=== PATIENT | female | born 1940 | race Caucasian/White ===

== ENCOUNTER 2020-01-03 21:06 | Inpatient (IN) | payer MEDICARE ==
[2020-01-03] MEDS ORDERED: SUBLIMAZE 100 MCG/2 ML IV ONE (21:11)
[2020-01-03] MEDS ORDERED: Sodium Chloride 0.9% 1000 ML 1,000 ML IV SCH (21:15)
[2020-01-03] MEDS ORDERED: Sodium Chloride 0.9% 1000 ML 1,000 ML ONE (21:23)
[2020-01-03] MEDS ORDERED: SUBLIMAZE 100 MCG/2 ML ONE (21:23)
[2020-01-03 21:38] LABS: Absolute Neutrophil Ct (ANC) 4.18 (1.4-6.9); BASOPHIL % 0.3 % (0.0-0.4); Basophil (Absolute #) 0.02 (0-0.4); Eosinophil % 4.4 % (0.00-5.0); Eosinophil (Absolute #) 0.29 (0-0.5); Hematocrit 31.3 % (35-47); Hemoglobin 9.6 gm/dl (12.0-16.0); Lymphocyte (Absolute #) 1.31 (1.0-4.6); Lymphocytes % 20.1 % (24.0-44.0); Mean Corpuscular Hgb Concent. 30.7 g/dl (32-36); Mean Platelet Volume 9.5 fl (7.5-11.0); Monocyte (Absolute #) 0.72 (0.0-1.3); Neutrophil % 64.2 % (36.0-66.0); Platelet Count 180 K/mm3 (150-450); Red Cell Distribution Width 16.4 % (11.5-14.0); White Blood Count 6.5 K/mm3 (4.0-10.5)
[2020-01-03 21:51] LABS: INR 2.52 (0.8-3.0); PROTIME 28.7 SECONDS (9.95-12.35)
[2020-01-03 21:56] LABS: ANION GAP 9.7 MEQ/L (5-15); BILIRUBIN,TOTAL 0.5 mg/dL (0.2-1.3); Calcium 9.7 mg/dL (8.4-10.2); Creatinine 1 1.29 mg/dL (0.52-1.04); EST GLOMERULAR FILTRATION RATE 42.5 ML/MIN; Potassium 4.8 mmol/L (3.5-5.1); Total Protein 7.7 g/dL (6.3-8.2)
--- NOTE | 2020-01-03 22:19 | XRAY ---
Indication: Status post fall 3 days ago. Multiple contiguous axial images obtained through the chest without contrast. Comparison: None Lungs demonstrate scattered peripheral fibrosis/scarring greatest in the right lower lobe. No suspicious pulmonary mass, infiltrate, consolidation, or effusion. Heart is borderline enlarged with incidental aortic valve replacement and a left-sided AICD. Aorta is markedly arteriosclerotic without aneurysmal dilatation. No pathologic mediastinal lymphadenopathy. Osseous structures intact with osteopenia and moderate degenerative changes throughout the spine. CT abdomen/pelvis reported separately. Impression: 1. Scattered fibrosis/scarring, borderline cardiomegaly, postsurgical changes osteopenia, and multilevel degenerative spondylosis. 2. Remaining CT chest without contrast exam is negative.
--- NOTE | 2020-01-03 22:25 | XRAY ---
Indication: Status post fall 3 days ago. Multiple contiguous axial images obtained through the abdomen and pelvis without contrast as ordered. Comparison: October 25, 2006 CT chest reported separately. Noncontrasted stomach and bowel loops appear nonobstructed. Appendix not seen. Cholecystectomy and hysterectomy. No free fluid/air. Again hepatic/splenic calcified granulomas. 2.8 cm right lower renal exophytic cyst. Remaining liver, pancreas, spleen, adrenal glands, kidneys, ureters, and bladder appear unremarkable for noncontrast exam. Heavy scattered aortoiliac calcifications without AAA. Osseous structures demonstrate osteopenia, moderate/advanced multilevel degenerative spondylosis and 7 mm L4 spondylolisthesis. Impression: 1. Right renal cyst, old granulomatous disease, and chronic bony findings. 2. Remaining CT abdomen/pelvis without contrast exam is negative.
[2020-01-03 23:20] LABS: Appearance SLIGHTLY CLOUDY (CLEAR); Bacteria MODERATE /HPF (NEGATIVE); Bilirubin NEGATIVE (NEGATIVE); Blood SMALL Ery/ul (0-5); Glucose NEGATIVE (NEGATIVE); Ketones NEGATIVE (NEGATIVE); Leukocyte Esterase TRACE (NEGATIVE); Nitrite POSITIVE (NEGATIVE); Protein,Urine Dip NEGATIVE (Negative); Specific Gravity 1.015 (1.005-1.025); Urobilinogen NEGATIVE mg/dL (0-1)
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
[2020-01-04] MEDS: DILAUDID 2 MG INJECTION IV PRN ×4 (01:31→13:21)
--- NOTE | 2020-01-04 06:20 | XRAY ---
Indication: Pain following fall 3 days ago. Comparison: CT abdomen/pelvis same day. Single AP pelvis again demonstrates a few phleboliths, lower lumbar degenerative spondylosis, and scattered vascular calcifications. No other bony, articular, or soft tissue abnormalities.
[2020-01-04 06:43] LABS: Absolute Neutrophil Ct (ANC) 2.99 (1.4-6.9); BASOPHIL % 0.6 % (0.0-0.4); Basophil (Absolute #) 0.03 (0-0.4); Eosinophil % 4.1 % (0.00-5.0); Eosinophil (Absolute #) 0.21 (0-0.5); Hematocrit 26.4 % (35-47); Hemoglobin 8.1 gm/dl (12.0-16.0); Lymphocyte (Absolute #) 1.23 (1.0-4.6); Lymphocytes % 24.1 % (24.0-44.0); Mean Cell Volume 102.7 fl (78-100); Mean Corpuscular Hemoglobin 31.5 pg (26-32); Mean Corpuscular Hgb Concent. 30.7 g/dl (32-36); Mean Platelet Volume 9.8 fl (7.5-11.0); Monocyte (Absolute #) 0.65 (0.0-1.3); Monocytes % 12.7 % (0.0-12.0); Neutrophil % 58.5 % (36.0-66.0); Platelet Count 148 K/mm3 (150-450); Red Blood Count 2.57 M/mm3 (4.1-5.4); Red Cell Distribution Width 16.3 % (11.5-14.0); White Blood Count 5.1 K/mm3 (4.0-10.5)
[2020-01-04] MEDS: Sodium Chloride 0.9% 1000 ML 1,000 ML IV SCH ×3 (07:28→21:11)
[2020-01-04] MEDS ORDERED: Sodium Chloride 0.9% 1000 ML 1,000 ML ONE (07:35)
[2020-01-04] MEDS: ROCEPHIN 1 Gm-D5w 50 ml Bag** 1 G/50 ML IVPB IV SCH (12:27)
[2020-01-04] MEDS ORDERED: NON-FORMULARY ITEM (Rivaroxaban [Xarelto] 15 MG) PO SCH (13:15)
[2020-01-04] MEDS: LASIX 20 MG PO SCH (13:21)
[2020-01-04] MEDS: Coreg 6.25 MG PO SCH ×2 (13:21→21:53)
[2020-01-04] MEDS: SYNTHROID 25 MCG PO SCH (13:21)
[2020-01-04] MEDS: SYNTHROID 112 MCG PO SCH (13:22)
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
[2020-01-04] MEDS: Voltaren GEL TOP SCH ×2 (15:03→21:55)
[2020-01-04] MEDS: Norco 10/325 MG Tablet PO PRN ×2 (15:14→21:54)
[2020-01-04] MEDS: XARELTO 10 MG TABLET PO SCH (17:23)
--- NOTE | 2020-01-04 20:36 | XRAY ---
Indication: Chronic right back pain for months. Comparison: CT lumbar spine April 12, 2019. 3 view lumbar spine again demonstrates osteopenia, moderate/advanced multilevel thoracolumbar degenerative spondylosis greatest L4-S1, grade 2 L4 spondylolisthesis, splenic calcified granulomas, cholecystectomy clips, and heavy scattered vascular calcifications. No new or acute findings. Comment: Preliminary interpretation was made by [facility]. No critical discrepancy.
[2020-01-04] MEDS: Restoril 15 MG PO SCH (21:54)
[2020-01-04] MEDS: ZOCOR 20MG PO SCH (21:55)
[2020-01-04] MEDS ORDERED: TEMAZEPAM 30 MG PO SCH (22:00)
[2020-01-04] MEDS ORDERED: NON-FORMULARY ITEM (Pravastatin Sodium [Pravastatin Sodium] 20 MG) PO SCH (22:00)
[2020-01-05] MEDS: Norco 10/325 MG Tablet PO PRN (06:10)
[2020-01-05 06:15] LABS: Hematocrit 26.3 % (35-47); Hemoglobin 7.9 gm/dl (12.0-16.0); Mean Cell Volume 103.1 fl (78-100); Mean Platelet Volume 9.5 fl (7.5-11.0); Platelet Count 136 K/mm3 (150-450); Red Blood Count 2.55 M/mm3 (4.1-5.4); Red Cell Distribution Width 15.5 % (11.5-14.0); White Blood Count 4.9 K/mm3 (4.0-10.5)
[2020-01-05 06:55] LABS: Calcium 8.9 mg/dL (8.4-10.2); Creatinine 1 1.48 mg/dL (0.52-1.04); EST GLOMERULAR FILTRATION RATE 36.3 ML/MIN
[2020-01-05] MEDS: Sodium Chloride 0.9% 1000 ML 1,000 ML IV SCH ×2 (07:36→16:22)
[2020-01-05] MEDS: ROCEPHIN 1 Gm-D5w 50 ml Bag** 1 G/50 ML IVPB IV SCH (09:04)
[2020-01-05] MEDS: SYNTHROID 112 MCG PO SCH (09:06)
[2020-01-05] MEDS: Coreg 6.25 MG PO SCH ×2 (09:06→21:30)
[2020-01-05] MEDS: Voltaren GEL TOP SCH ×3 (09:06→21:30)
[2020-01-05] MEDS: SYNTHROID 25 MCG PO SCH (09:06)
[2020-01-05] MEDS: LASIX 20 MG PO SCH (09:06)
[2020-01-05] MEDS: DILAUDID 2 MG INJECTION IV PRN (09:12)
[2020-01-05] MEDS: Zofran 4 MG/2 ML VIAL IV PRN ×2 (09:12→20:35)
[2020-01-05] MEDS ORDERED: NON-FORMULARY ITEM (Levothyroxine Sodium [Levothyroxine Sodium] 137 MCG) PO SCH (10:00)
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
[2020-01-05] MEDS: XARELTO 10 MG TABLET PO SCH (17:00)
[2020-01-05] MEDS: Restoril 15 MG PO SCH (21:00)
[2020-01-05] MEDS: ZOCOR 20MG PO SCH (21:30)
[2020-01-06] MEDS: Sodium Chloride 0.9% 1000 ML 1,000 ML IV SCH ×2 (00:25→07:58)
[2020-01-06 04:07] VITALS: PULSE 60
[2020-01-06 06:16] LABS: Hematocrit 26.3 % (35-47); Hemoglobin 7.9 gm/dl (12.0-16.0); Mean Cell Volume 102.3 fl (78-100); Mean Corpuscular Hemoglobin 30.7 pg (26-32); Platelet Count 135 K/mm3 (150-450); Red Blood Count 2.57 M/mm3 (4.1-5.4); Red Cell Distribution Width 15.1 % (11.5-14.0)
[2020-01-06] MEDS: Norco 10/325 MG Tablet PO PRN (06:19)
[2020-01-06 06:29] LABS: ANION GAP 6.7 MEQ/L (5-15); Calcium 8.9 mg/dL (8.4-10.2); Creatinine 1 1.34 mg/dL (0.52-1.04); EST GLOMERULAR FILTRATION RATE 40.7 ML/MIN; Potassium 4.9 mmol/L (3.5-5.1)
[2020-01-06] MEDS: SYNTHROID 25 MCG PO SCH (09:07)
[2020-01-06] MEDS: Coreg 6.25 MG PO SCH (09:07)
[2020-01-06] MEDS: SYNTHROID 112 MCG PO SCH (09:07)
[2020-01-06] MEDS: ROCEPHIN 1 Gm-D5w 50 ml Bag** 1 G/50 ML IVPB IV SCH (09:07)
[2020-01-06] MEDS: Voltaren GEL TOP SCH (09:07)
[2020-01-06] MEDS: LASIX 20 MG PO SCH (09:07)
[2020-01-06 11:38] VITALS: BP 128/52; O2SAT 97
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
== END 2020-01-06 12:32 | disposition home or self-care (01) | DRG 552 ==
LOC: ED 21:06 → MED SURG 01-04 00:53 → UNDOADMOB 01-04 00:53 → OBSVTOIN 01-04 13:36 → MED SURG 01-04 13:36 → OBSVTOIN 01-05 14:06 → INTOOBSV 01-05 14:06 → UNDODISIN 01-06 12:32
PROVIDERS: ADMIT General Practice; ATTEND General Practice
DX: M54.5 Low back pain (principal); N39.0 Urinary tract infection, site not specified; B96.1 Klebsiella pneumoniae [K. pneumoniae] as the cause of diseases classified elsewhere; I12.9 Hypertensive chronic kidney disease with stage 1 through stage 4 chronic kidney disease, or unspecified chronic kidney disease; N18.9 Chronic kidney disease, unspecified; E78.5 Hyperlipidemia, unspecified; D64.9 Anemia, unspecified; M25.551 Pain in right hip; D69.6 Thrombocytopenia, unspecified; E78.00 Pure hypercholesterolemia, unspecified; I25.2 Old myocardial infarction
CPT/HCPCS: 36415; 71250; 72100; 72170; 74176; 80048; 80053; 81001; 82150; 82962; 83036; 83605; 83690; 84484; 85025; 85027; 85610; 87077; 87086; 87186; 93005; 96374; 99285; J0696; J1170; J2405; J3010; A9270-GY

== ENCOUNTER 2024-08-31 23:20 | Emergency (ER) | payer MEDICARE ==
--- NOTE | 2024-08-31 23:25 | ERPHSYRPT ---
- History of Present Illness Time Seen by Provider: 08/31/24 23:25 Source: patient, EMS Exam Limitations: no limitations Physician History: This is an 84-year-old white female patient brought to the emergency room by the mud mixer service secondary to her right lower extremity being caught under the wheelchair causing pain in her right knee. Patient is wheelchair-bound. This occurred several hours ago. Patient took 2 Aleve and use a lidocaine patch which was not helpful. Patient's primary care provider is Dr. Angel. Patient had a lot of heavy books in her arms and on her lap when she was leaning forward but her right lower extremity was caught underneath her wheelchair. It took family members to free her right lower extremity leg. She has had a prosthesis placed in the past in that right lower extremity. Patient has a history of hyperlipidemia, hypertension, hypothyroidism and has an arrhythmia and she is on Xarelto. She denies chest pain and she denies shortness of breath. Patient states that she has used [place] before and tolerated this medication. Method of Injury: twisted Occurred: just prior to arrival Quality: constant, aching Severity of Pain-Max: moderate Severity of Pain-Current: moderate Lower Extremities Pain: knee: right Modifying Factors: Improves With: movement Associated Symptoms: unable to bear weight Allergies/Adverse Reactions: acetaminophen [From Tylenol-Codeine #3] Allergy (Verified 08/31/24 23:25) Cough azathioprine [From Imuran] Allergy (Verified 08/31/24 23:24) codeine [From Tylenol-Codeine #3] Allergy (Verified 08/31/24 23:25) Cough hydroxychloroquine Allergy (Verified 08/31/24 23:24) Home Medications: Furosemide 20 mg [Lasix 20 mg] 20 mg PO DAILY PRN PRN 01/03/20 [History] Pravastatin Sodium 20 mg PO HS 01/03/20 [History] Rivaroxaban [Xarelto] 15 mg PO HS 01/03/20 [History] Temazepam 30 mg PO HS 01/03/20 [History] Levothyroxine Sodium 150 mcg PO DAILY 08/31/24 [History] carvediloL [Carvedilol] 25 mg PO BID 08/31/24 [History] Hx Tetanus, Diphtheria Vaccination/Date Given: No Hx Influenza Vaccination/Date Given: Yes Hx Pneumococcal Vaccination/Date Given: Yes Travel Risk - International Travel Have you traveled outside of the country in past 3 weeks: No - Emerging Infectious Disease Are you exhibiting symptoms associated with any current EIDs: No - Review of Systems Constitutional: No Symptoms Eyes: No Symptoms Ears, Nose, & Throat: No Symptoms Respiratory: No Symptoms Cardiac: No Symptoms Abdominal/Gastrointestinal: No Symptoms Genitourinary Symptoms: No Symptoms Musculoskeletal: Injury (Right knee), Joint Pain (Right knee) Skin: No Symptoms Neurological: No Symptoms Psychological: No Symptoms Endocrine: No Symptoms Hematologic/Lymphatic: No Symptoms Immunological/Allergic: No Symptoms All Other Systems: Reviewed and Negative - Past Medical History Neurological History: No Pertinent History Cardiac History: Arrhythmia, High Cholesterol, Hypertension, Myocardial Infarction ([place]) Respiratory History: CHF Endocrine Medical History: Hypothyroidism Musculoskeletal History: Arthritis Psycho-Social History: No Pertinent History - Past Surgical History Past Surgical History: Yes Cardiac: Cardiac Catheterization, Cardiac Stent, Pacemaker, Valve Replacement Musculoskeletal: Joint Replacement Female Surgical History: Hysterectomy - Social History Smoking Status: Never smoker Exposure to second hand smoke: No Drug Use: none - Nursing Vital Signs Nursing Vital Signs: Initial Vital Signs Pulse Rate 70 08/31/24 23:30 Blood Pressure 143/66 08/31/24 23:30 O2 Sat by Pulse Oximetry 99 08/31/24 23:30 Pain Scale Pain Intensity [Right Medial 6 Knee] Pain Intensity 6 - Physical Exam General Appearance: no apparent distress, alert, anxiety Eyes, Ears, Nose, Throat Exam: normal ENT inspection, moist mucous membranes Neck Exam: normal inspection, non-tender, supple, full range of motion Cardiovascular/Respiratory Exam: chest non-tender, no respiratory distress Gastrointestinal/Abdominal Exam: non-tender Back Exam: normal inspection, normal range of motion, No vertebral tenderness Hips Exam: bilateral: non-tender, normal inspection, normal range of motion, no evidence of injury Legs Exam: bilateral leg: non-tender, normal inspection, normal range of motion, no evidence of injury Knees Exam: right knee: bone tenderness, ecchymosis, soft tissue tenderness, swelling, left knee: non-tender, normal inspection, normal range of motion, no evidence of injury Ankle Exam: bilateral ankle: non-tender, normal inspection, normal range of motion, no evidence of injury Foot Exam: bilateral foot: non-tender, normal inspection, normal range of motion, no evidence of injury Neuro/Tendon Exam: normal sensation, normal tendon functions, responds to pain, no evidence tendon injury, No sensory deficit Mental Status Exam: alert, oriented x 3, cooperative Skin Exam: normal color, warm, dry SpO2 Interpretation: normal O2 Delivery: Room Air - Course Nursing assessment & vital signs reviewed: Yes Ordered Tests: Active Orders 24 hr Category Date Time Status KNEE (3 VIEWS) Stat Exams 08/31/24 23:25 Completed Medication Summary Discontinued Medications Generic Name Dose Route Start Last Admin Trade Name Rj PRN Reason Stop Dose Admin Hydrocodone Bitart/Acetaminophen 1 tab 09/01/24 00:47 Hydrocodone/Apap 5/325 1 Tab Tablet PO 09/01/24 00:48 STAT ONE - Progress Progress: improved, pain not gone completely Progress Note: 09/01/24 00:35 My medical decision making and the assignment of low complexity of this patient's medical issue today is based on review the patient's past medical history, review of the patient's medication list, reviewed patient drug allergy list, history present illness and physical findings on examination. The workup in this patient includes x-ray of the patient's right knee. Differential diagnosis includes but is not limited to right knee sprain, right knee dislocation, right knee fracture 09/01/24 00:52 I interpreted the patient's preliminary x-ray of her right knee. My interpretation is no acute fracture or dislocation. The hardware from her knee replacement appears to be intact. The radiologist interpreted the final report on this patient's right knee x-ray. His impression is no definite bony or hardware fracture or dislocation. No f eatures of loosening of the hardware. There is mild suprapatellar soft tissue swelling Counseled pt/family regarding: diagnosis, need for follow-up, rad results Medical Desision Making - Independent Historian Additional History obtained from: Child - Diagnostic Testing Diagnostic test were ordered, analyzed, and reviewed by me: Yes Radiological Interpretation: Interpreted by me, Reviewed by me, Teleradiologist Report - Risk of complications The pt has a mod risk of morbidity or mortality based on: Need for prescription drug management - Departure Departure Disposition: Home Clinical Impression: Right knee sprain Condition: Stable Critical Care Time: No Referrals: JESIKA ANGEL MD [Primary Care Provider, INTERNAL MEDICINE] - Follow up/PCP as directed Additional Instructions: Ice pack to tender areas 3-4 times a day for the next 3 days. May also continue taking Aleve as prescribed. In addition, you may use lidocaine patch to the tender area. Take your medications as prescribed. If your symptoms persist, you may follow-up at the [facility] orthopedic clinic. It is a walk-in clinic. It is open Monday through Monday 8 AM to 10 AM. You do not need an appointment to be seen if you arrive during that time frame. Prescriptions: Hydrocodone/APAP 5/325 [[place] 5/325 mg] 1 each PO Q12H PRN PRN #6 tablet MDD 2 PRN Reason: Pain
[2024-08-31 23:46] VITALS: RESP 18; TEMP 97.3
--- NOTE | 2024-09-01 00:45 | XRAY ---
CLINICAL HISTORY: Knee injury COMPARISON: None. TECHNIQUE: X-ray examination of the right knee joint is performed in AP, lateral, and oblique 3 views. FINDINGS: No definite bony or hardware fracture or dislocation in these views. No features of loosening of the hardware. Mild osteopenia. Mild suprapatellar soft tissue swelling could be due to mild suprapatellar joint effusion. Vascular calcification. IMPRESSION: 1. No definite bony or hardware fracture or dislocation in these views. No features of loosening of the hardware. 2. Mild suprapatellar soft tissue swelling could be due to mild suprapatellar joint effusion. DISCLAIMER:A subtle bone abnormality or fracture may not be readily apparent on x-rays, thus clinical correlation and further imaging including follow up CT, MRI, or follow up x-rays are advised as needed. Electronically Signed by: Jazmin Jordan MD. (09/01/2024 00:41:39 EDT)
[2024-09-01 00:46] VITALS: PULSE 70
[2024-09-01] MEDS ORDERED: NORCO 5/325 MG ONE (00:52)
[2024-09-01] MEDS: NORCO 5/325 MG PO ONE (00:53)
[2024-09-01 01:31] VITALS: BP 125/80; O2SAT 98
== END 2024-09-01 01:43 | disposition home or self-care (01) ==
LOC: ED 23:20
DX: S83.91XA Sprain of unspecified site of right knee, initial encounter (principal); W23.0XXA Caught, crushed, jammed, or pinched between moving objects, initial encounter; Z79.891 Long term (current) use of opiate analgesic; Z79.01 Long term (current) use of anticoagulants; Z79.899 Other long term (current) drug therapy
CPT/HCPCS: 73562; 99283; A9270-GY